=== PATIENT | female | born 2000 | race Caucasian/White ===

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

== ENCOUNTER 2019-02-01 14:46 | Emergency (ER) | payer MEDICAID ==
--- NOTE | 2019-02-01 15:19 | EDM.PDOC ---
ED HPI GENERAL MEDICAL PROBLEM - General Chief Complaint: Neurological Problem Stated Complaint: SEIZURES Time Seen by Provider: 02/01/19 15:00 Source of Information: Reports: Patient, Family History Limitations: Reports: No Limitations - History of Present Illness INITIAL COMMENTS - FREE TEXT/NARRATIVE: 18-year-old female who has a chronic history of epilepsy, her seizures were overall controlled for 5 years but over the past 6 months she has been having increased seizures. Over the past 2-3 days she's had some dizziness and lightheadedness, blurry vision so was on her way into the clinic to be evaluated today when she had some seizure-like activity in the waiting area. She was immediately wheeled over to the emergency room. She arrived alert and in no distress. Vitals are stable. Apparently she has possibly missed one dose of Keppra in the past week. They had talked to her seizure physician prior to going to the clinic, apparently some labs were requested and faxed to the clinic , we will try to find those orders. Onset: Unknown/Unsure Associated Symptoms: Reports: Confusion, Other (Symptoms recently are nonspecific such as dizziness, unsteady and lightheaded with some visual blurring). Denies: Chest Pain, Cough, Diaphoresis, Fever/Chills, Malaise, Nausea/Vomiting, Shortness of Breath, Weakness - Related Data Allergies Allergy/AdvReac Type Severity Reaction Status Date / Time amoxicillin Allergy Rash Verified 09/16/18 20:37 lorazepam [From Ativan] Allergy Hyperactivi Verified 09/16/18 20:37 ty Home Meds: Home Meds Felbamate [Felbatol] 600 mg PO BID 04/13/14 [History] Folic Acid 2 mg PO DAILY 04/13/14 [History] Loratadine [Claritin] 10 mg PO DAILY 04/13/14 [History] lamoTRIgine [Lamictal Xr] 50 mg PO BID 04/13/14 [History] Amitriptyline [Elavil] 25 mg PO BEDTIME 09/16/18 [History] Montelukast [Singulair] 10 mg PO BEDTIME 09/16/18 [History] levETIRAcetam [Levetiracetam] 1,000 mg PO BID 09/16/18 [History] Past Medical History Musculoskeletal History: Reports: Other (See Below) Other Musculoskeletal History: sprain Neurological History: Reports: Seizure - Past Surgical History Musculoskeletal Surgical History: Reports: Other (See Below) Other Musculoskeletal Surgeries/Procedures:: left foot Social & Family History - Tobacco Use Smoking Status *Q: Never Smoker - Caffeine Use Caffeine Use: Reports: Soda - Recreational Drug Use Recreational Drug Use: No ED ROS GENERAL - Review of Systems Review Of Systems: See Below Constitutional: Denies: Fever HEENT: Reports: Vision Change (Intermittent blurred vision) Respiratory: Denies: Shortness of Breath Cardiovascular: Denies: Chest Pain GI/Abdominal: Denies: Abdominal Pain, Nausea, Vomiting Skin: Reports: No Symptoms. Denies: Bruising Neurological: Reports: Seizure (Increased seizure activity). Denies: Headache - Physical Exam Exam: See Below Exam Limited By: No Limitations General Appearance: Alert, No Apparent Distress Eye Exam: Bilateral Eye: Normal Inspection (EOMs are intact, pupils reactive) Throat/Mouth: Normal Inspection, Other (No trauma to the tongue) Head Exam: Atraumatic Neck: Supple, Non-Tender Respiratory/Chest: Lungs Clear Cardiovascular: Regular Rate, Rhythm Neuro Exam (Abbreviated): Alert, Oriented, No Motor/Sensory Deficits Psychiatric: Normal Affect, Normal Mood Skin Exam: Warm, Dry Course - Vital Signs Last Recorded V/S: Last Vital Signs Temp 97.6 F 02/01/19 14:52 Pulse 97 02/01/19 16:18 Resp 16 02/01/19 16:14 BP 92/49 L 02/01/19 16:18 Pulse Ox 96 02/01/19 16:14 - Orders/Labs/Meds Orders: Active Orders 24 hr Category Date Time Status FELBAMATE (FELBATOL(R)), SERUM Routine Lab 02/01/19 15:42 Received LAMOTRIGINE (LAMICTAL), SERUM Stat Lab 02/01/19 15:30 Received LEVETIRACETAM (KEPPRA), S Stat Lab 02/01/19 15:30 Received Saline Lock Insert [OM.PC] Routine Oth 02/01/19 15:13 Ordered Labs: Laboratory Tests 02/01/19 02/01/19 02/01/19 Range/Units 15:30 15:30 15:54 WBC 4.7 (4.5-11.0) K/uL RBC 4.74 (3.30-5.50) M/uL Hgb 14.6 (12.0-15.0) g/dL Hct 42.6 (36.0-48.0) % MCV 90 (80-98) fL MCH 31 (27-31) pg MCHC 34 (32-36) % Plt Count 248 (150-400) K/uL Neut % (Auto) 50 (36-66) % Lymph % (Auto) 40 (24-44) % [place] % (Auto) 9 H (2-6) % Eos % (Auto) 1 L (2-4) % Baso % (Auto) 1 (0-1) % Sodium 141 (140-148) mmol/L Potassium 3.8 (3.6-5.2) mmol/L Chloride 102 (100-108) mmol/L Carbon Dioxide 29 (21-32) mmol/L Anion Gap 10.1 (5.0-14.0) mmol/L BUN 11 (7-18) mg/dL Creatinine 0.9 (0.6-1.0) mg/dL Est Cr Clr Drug Dosing 101.42 mL/min Estimated GFR (MDRD) > 60 (>60) Glucose 89 (74-106) mg/dL Calcium 8.8 (8.5-10.1) mg/dL Total Bilirubin 0.3 (0.2-1.0) mg/dL AST 19 (15-37) U/L ALT 20 (12-78) U/L Alkaline Phosphatase 81 (46-116) U/L Total Protein 7.6 (6.4-8.2) g/dL Albumin 4.3 (3.4-5.0) g/dL Globulin 3.3 (2.3-3.5) g/dL Albumin/Globulin Ratio 1.3 (1.2-2.2) Urine Opiates Screen Negative (NEGATIVE) Ur Oxycodone Screen Negative (NEGATIVE) Urine Methadone Screen Negative (NEGATIVE) Ur Propoxyphene Screen Negative (NEGATIVE) Ur Barbiturates Screen Negative (NEGATIVE) Ur Tricyclics Screen Presumptive positive H (NEGATIVE) Ur Phencyclidine Scrn Negative (NEGATIVE) Ur Amphetamine Screen Negative (NEGATIVE) U Methamphetamines Scrn Negative (NEGATIVE) Urine MDMA Screen Negative (NEGATIVE) U Benzodiazepines Scrn Negative (NEGATIVE) U Cocaine Metab Screen Negative (NEGATIVE) U Marijuana (THC) Screen Negative (NEGATIVE) Meds: Medications Discontinued Medications Generic Name Dose Route Start Last Admin Trade Name Saida PRN Reason Stop Dose Admin Levetiracetam 500 mg/ Sodium 105 mls @ 400 mls/hr 02/01/19 15:44 02/01/19 15: 53 Chloride IV 02/01/19 15:58 400 mls/hr ONETIME ONE Administration Sodium Chloride 10 ml 02/01/19 15:13 02/01/19 16:13 Saline Flush FLUSH 10 ml ASDIRECTED PRN Administration Keep Vein Open - Re-Assessments/Exams Free Text/Narrative Re-Assessment/Exam: 02/01/19 15:19 A saline lock was applied 02/01/19 16:31 After consultation with her neurology specialist, CBC, CMP, urine tox screen, and drug levels were obtained. CBC and CMP as well as urine tox screen were all negative. She was given 500 mg of IV Keppra and discharge. No medication changes until the drug levels are available. Patient had no seizure activity and was normal throughout her stay in the emergency room. Departure - Departure Time of Disposition: 16:48 Disposition: Home, Self-Care 01 Clinical Impression: Seizures - Discharge Information Instructions: Epilepsy, [id number] Referrals: PCP,None [Primary Care Provider] - Forms: ED Department Discharge Care Plan Goals: Continue current medications and increase activity as tolerated. Results of your lab tests will be sent when available. Sepsis Event Note - Evaluation Sepsis Screening Result: No Definite Risk - Focused Exam Vital Signs: Vital Signs Temp Pulse Resp BP Pulse Ox 02/01/19 16:18 97 92/49 L 02/01/19 16:14 74 16 87/44 L 96 02/01/19 14:52 97.6 F 86 16 119/82 96 Date Exam was Performed: 02/01/19 Time Exam was Performed: 18:29 - My Orders Last 24 Hours: My Active Orders 02/01/19 15:13 Saline Lock Insert [OM.PC] Routine 02/01/19 15:30 LAMOTRIGINE (LAMICTAL), SERUM Stat LEVETIRACETAM (KEPPRA), S Stat 02/01/19 15:42 FELBAMATE (FELBATOL(R)), SERUM Routine - Assessment/Plan Last 24 Hours: My Active Orders 02/01/19 15:13 Saline Lock Insert [OM.PC] Routine 02/01/19 15:30 LAMOTRIGINE (LAMICTAL), SERUM Stat LEVETIRACETAM (KEPPRA), S Stat 02/01/19 15:42 FELBAMATE (FELBATOL(R)), SERUM Routine
[2019-02-01] MEDS: Sodium Chloride 0.9% 10 ML Syringe FLUSH PRN ×2 (15:28→16:13)
[2019-02-01] MEDS ORDERED: levETIRAcetam 500 MG in Sodium Chloride 0.9% 100 ML IV ONE (15:44)
[2019-02-01 16:19] VITALS: BP 92/49; PULSE 97
== END 2019-02-01 16:48 | disposition home or self-care (01) ==
LOC: JP.ED 14:46
DX: R56.9 Unspecified convulsions (principal); Z88.1 Allergy status to other antibiotic agents; Z88.8 Allergy status to other drugs, medicaments and biological substances; Z79.899 Other long term (current) drug therapy
CPT/HCPCS: 36415; 80053; 80175; 80177; 80299; 80305; 85025; 96365; 99284; J1953; J7050

== ENCOUNTER 2020-04-09 00:49 | Emergency (ER) | payer MEDICAID ==
--- NOTE | 2020-04-09 01:28 | EDM.PDOCBH ---
ED HPI GENERAL MEDICAL PROBLEM - General Chief Complaint: Behavioral/Psych Stated Complaint: EVAL Time Seen by Provider: 04/09/20 01:25 Source of Information: Reports: Patient History Limitations: Reports: Other (pt does seem immature and feels like she needs her family by her side. ) - History of Present Illness INITIAL COMMENTS - FREE TEXT/NARRATIVE: pt satedtonight that she was depressed and that she was going [place] the [place] and freeze to . She has been taking her meds. Onset: Gradual Duration: Day(s):, Waxing/Waning Associated Symptoms: Reports: Seizure, Other ( increased depression) - Related Data Allergies Allergy/AdvReac Type Severity Reaction Status Date / Time amoxicillin Allergy Rash Verified 04/09/20 10:44 lorazepam [From Ativan] Allergy Hyperactivi Verified 04/09/20 10:44 ty Home Meds: Home Meds Felbamate [Felbatol] 600 mg PO BID 04/13/14 [History] Folic Acid 2 mg PO DAILY 04/13/14 [History] lamoTRIgine [Lamictal Xr] 100 mg PO BID 04/13/14 [History] Amitriptyline [Elavil] 25 mg PO BEDTIME 09/16/18 [History] Montelukast [Singulair] 10 mg PO BEDTIME 09/16/18 [History] levETIRAcetam [Levetiracetam] 1,500 mg PO BID 09/16/18 [History] Past Medical History Musculoskeletal History: Reports: Other (See Below) Other Musculoskeletal History: sprain Neurological History: Reports: Seizure - Past Surgical History Musculoskeletal Surgical History: Reports: Other (See Below) Other Musculoskeletal Surgeries/Procedures:: left foot Social & Family History - Caffeine Use Caffeine Use: Reports: Soda ED ROS GENERAL - Review of Systems Review Of Systems: See Below Constitutional: Reports: No Symptoms HEENT: Reports: No Symptoms Respiratory: Reports: No Symptoms Cardiovascular: Reports: No Symptoms Endocrine: Reports: No Symptoms GI/Abdominal: Reports: No Symptoms : Reports: No Symptoms Musculoskeletal: Reports: No Symptoms Skin: Reports: No Symptoms Neurological: Reports: No Symptoms, Other (pt has a history of seizures. ) Psychiatric: Reports: Depression, Suicidal Ideation ED EXAM, BEHAVIORAL HEALTH - Physical Exam Exam: See Below Text/Narrative:: pt has a history of mild retardation, high funtioning. She has been depressed and has threatened suicide. She has talked to the crisis team multiple times and the domínguez reccommened inpatient treatment. Exam Limited By: No Limitations General Appearance: Alert, Anxious, Other (pt is not willing to discuss some of her issues unless her mother is present. ) Ears: Normal TMs Nose: Normal Inspection Throat/Mouth: Normal Inspection Head: Atraumatic Neck: Normal Inspection Respiratory/Chest: No Respiratory Distress Cardiovascular: Regular Rate, Rhythm GI/Abdominal: Soft, Non-Tender (Female) Exam: Deferred Rectal (Female) Exam: Deferred Back Exam: Normal Inspection Extremities: Normal Inspection Neurological: Alert Psychiatric: Alert, Normal Cognition, Other (pt is continuously rocking while she talks. ) COURSE, BEHAVIORAL HEALTH COMP - Course Vital Signs: Last Vital Signs Temp 36.3 C 04/09/20 01:24 Pulse 123 H 04/09/20 01:24 Resp 16 04/09/20 01:24 BP 145/86 H 04/09/20 01:24 Pulse Ox 95 04/09/20 01:24 Orders, Labs, Meds: Active Orders 24 hr Category Date Time Status LEVETIRACETAM (KEPPRA), S Stat Lab 04/09/20 01:11 Received Laboratory Tests 04/09/20 04/09/20 04/09/20 Range/Units 01:11 01:11 01:11 WBC 6.3 (4.5-11.0) K/uL RBC 4.53 (3.30-5.50) M/uL Hgb 13.9 (12.0-15.0) g/dL Hct 41.0 (36.0-48.0) % MCV 91 (80-98) fL MCH 31 (27-31) pg MCHC 34 (32-36) % Plt Count 246 (150-400) K/uL Neut % (Auto) 55 (36-66) % Lymph % (Auto) 35 (24-44) % Hanson % (Auto) 8 H (2-6) % Eos % (Auto) 1 L (2-4) % Baso % (Auto) 1 (0-1) % Sodium 136 L (140-148) mmol/L Potassium 3.5 L (3.6-5.2) mmol/L Chloride 103 (100-108) mmol/L Carbon Dioxide 26 (21-32) mmol/L Anion Gap 10.5 (5.0-14.0) mmol/L BUN 14 (7-18) mg/dL Creatinine 1.0 (0.6-1.0) mg/dL Est Cr Clr Drug Dosing 84.43 mL/min Estimated GFR (MDRD) > 60 (>60) Glucose 97 (74-106) mg/dL Calcium 9.3 (8.5-10.1) mg/dL Total Bilirubin 0.2 (0.2-1.0) mg/dL AST 33 (15-37) U/L ALT 53 D (12-78) U/L Alkaline Phosphatase 72 (46-116) U/L Total Protein 7.2 (6.4-8.2) g/dL Albumin 4.1 (3.4-5.0) g/dL Globulin 3.1 (2.3-3.5) g/dL Albumin/Globulin Ratio 1.3 (1.2-2.2) TSH, Ultra Sensitive (0.358-3.740) uIU/mL Urine Color (YELLOW) Urine Appearance (CLEAR) Urine pH (5.0-8.0) Ur Specific Elwood (1.008-1.030) Urine Protein (NEGATIVE) mg/dL Urine Glucose (UA) (NEGATIVE) mg/dL Urine Ketones (NEGATIVE) mg/dL Urine Occult Blood (NEGATIVE) Urine Nitrite (NEGATIVE) Urine Bilirubin (NEGATIVE) Urine Urobilinogen (0.2-1.0) EU/dL Ur Leukocyte Esterase (NEGATIVE) Urine RBC (0-5) Urine WBC (0-5) Ur Epithelial Cells Amorphous Sediment Urine Bacteria Urine Mucus Urine HCG, Qual Urine Opiates Screen (NEGATIVE) Ur Oxycodone Screen (NEGATIVE) Urine Methadone Screen (NEGATIVE) Ur Propoxyphene Screen (NEGATIVE) Ur Barbiturates Screen (NEGATIVE) Ur Tricyclics Screen (NEGATIVE) Ur Phencyclidine Scrn (NEGATIVE) Ur Amphetamine Screen (NEGATIVE) U Methamphetamines Scrn (NEGATIVE) Urine MDMA Screen (NEGATIVE) U Benzodiazepines Scrn (NEGATIVE) U Cocaine Metab Screen (NEGATIVE) U Marijuana (THC) Screen (NEGATIVE) Ethyl Alcohol < 3 mg/dL 04/09/20 04/09/20 04/09/20 Range/Units 02:06 04:15 04:30 WBC (4.5-11.0) K/uL RBC (3.30-5.50) M/uL Hgb (12.0-15.0) g/dL Hct (36.0-48.0) % MCV (80-98) fL MCH (27-31) pg MCHC (32-36) % Plt Count (150-400) K/uL Neut % (Auto) (36-66) % Lymph % (Auto) (24-44) % Hanson % (Auto) (2-6) % Eos % (Auto) (2-4) % Baso % (Auto) (0-1) % Sodium (140-148) mmol/L Potassium (3.6-5.2) mmol/L Chloride (100-108) mmol/L Carbon Dioxide (21-32) mmol/L Anion Gap (5.0-14.0) mmol/L BUN (7-18) mg/dL Creatinine (0.6-1.0) mg/dL Est Cr Clr Drug Dosing mL/min Estimated GFR (MDRD) (>60) Glucose (74-106) mg/dL Calcium (8.5-10.1) mg/dL Total Bilirubin (0.2-1.0) mg/dL AST (15-37) U/L ALT (12-78) U/L Alkaline Phosphatase (46-116) U/L Total Protein (6.4-8.2) g/dL Albumin (3.4-5.0) g/dL Globulin (2.3-3.5) g/dL Albumin/Globulin Ratio (1.2-2.2) TSH, Ultra Sensitive 1.577 (0.358-3.740) uIU/mL Urine Color Yellow (YELLOW) Urine Appearance Clear (CLEAR) Urine pH 7.0 (5.0-8.0) Ur Specific Elwood 1.020 (1.008-1.030) Urine Protein Negative (NEGATIVE) mg/dL Urine Glucose (UA) Negative (NEGATIVE) mg/dL Urine Ketones Negative (NEGATIVE) mg/dL Urine Occult Blood Negative (NEGATIVE) Urine Nitrite Negative (NEGATIVE) Urine Bilirubin Negative (NEGATIVE) Urine Urobilinogen 0.2 (0.2-1.0) EU/dL Ur Leukocyte Esterase Negative (NEGATIVE) Urine RBC 0-5 (0-5) Urine WBC 0-5 (0-5) Ur Epithelial Cells Rare Amorphous Sediment Not seen Urine Bacteria Few Urine Mucus Not seen Urine HCG, Qual Urine Opiates Screen Negative (NEGATIVE) Ur Oxycodone Screen Negative (NEGATIVE) Urine Methadone Screen Negative (NEGATIVE) Ur Propoxyphene Screen Negative (NEGATIVE) Ur Barbiturates Screen Negative (NEGATIVE) Ur Tricyclics Screen Presumptive positive H (NEGATIVE) Ur Phencyclidine Scrn Negative (NEGATIVE) Ur Amphetamine Screen Negative (NEGATIVE) U Methamphetamines Scrn Negative (NEGATIVE) Urine MDMA Screen Negative (NEGATIVE) U Benzodiazepines Scrn Negative (NEGATIVE) U Cocaine Metab Screen Negative (NEGATIVE) U Marijuana (THC) Screen Presumptive positive H (NEGATIVE) Ethyl Alcohol mg/dL 04/09/20 Range/Units 04:30 WBC (4.5-11.0) K/uL RBC (3.30-5.50) M/uL Hgb (12.0-15.0) g/dL Hct (36.0-48.0) % MCV (80-98) fL MCH (27-31) pg MCHC (32-36) % Plt Count (150-400) K/uL Neut % (Auto) (36-66) % Lymph % (Auto) (24-44) % Hanson % (Auto) (2-6) % Eos % (Auto) (2-4) % Baso % (Auto) (0-1) % Sodium (140-148) mmol/L Potassium (3.6-5.2) mmol/L Chloride (100-108) mmol/L Carbon Dioxide (21-32) mmol/L Anion Gap (5.0-14.0) mmol/L BUN (7-18) mg/dL Creatinine (0.6-1.0) mg/dL Est Cr Clr Drug Dosing mL/min Estimated GFR (MDRD) (>60) Glucose (74-106) mg/dL Calcium (8.5-10.1) mg/dL Total Bilirubin (0.2-1.0) mg/dL AST (15-37) U/L ALT (12-78) U/L Alkaline Phosphatase (46-116) U/L Total Protein (6.4-8.2) g/dL Albumin (3.4-5.0) g/dL Globulin (2.3-3.5) g/dL Albumin/Globulin Ratio (1.2-2.2) TSH, Ultra Sensitive (0.358-3.740) uIU/mL Urine Color (YELLOW) Urine Appearance (CLEAR) Urine pH (5.0-8.0) Ur Specific Elwood (1.008-1.030) Urine Protein (NEGATIVE) mg/dL Urine Glucose (UA) (NEGATIVE) mg/dL Urine Ketones (NEGATIVE) mg/dL Urine Occult Blood (NEGATIVE) Urine Nitrite (NEGATIVE) Urine Bilirubin (NEGATIVE) Urine Urobilinogen (0.2-1.0) EU/dL Ur Leukocyte Esterase (NEGATIVE) Urine RBC (0-5) Urine WBC (0-5) Ur Epithelial Cells Amorphous Sediment Urine Bacteria Urine Mucus Urine HCG, Qual Negative Urine Opiates Screen (NEGATIVE) Ur Oxycodone Screen (NEGATIVE) Urine Methadone Screen (NEGATIVE) Ur Propoxyphene Screen (NEGATIVE) Ur Barbiturates Screen (NEGATIVE) Ur Tricyclics Screen (NEGATIVE) Ur Phencyclidine Scrn (NEGATIVE) Ur Amphetamine Screen (NEGATIVE) U Methamphetamines Scrn (NEGATIVE) Urine MDMA Screen (NEGATIVE) U Benzodiazepines Scrn (NEGATIVE) U Cocaine Metab Screen (NEGATIVE) U Marijuana (THC) Screen (NEGATIVE) Ethyl Alcohol mg/dL Medications Discontinued Medications Generic Name Dose Route Start Last Admin Trade Name Freq PRN Reason Stop Dose Admin Clonazepam 0.5 mg 04/09/20 03:53 04/09/20 03:57 Klonopin PO 04/09/20 03:54 0.5 mg ONETIME ONE Administration Clonazepam 0.5 mg 04/09/20 07:13 04/09/20 07:26 Klonopin PO 04/09/20 07:14 0.5 mg ONETIME ONE Administration Medical Clearance: 04/09/20 01:57 lab work looks good. A urine has not been obtained. Olivia is reccomending inpatient treatment. The crisis tem is very concerned about her suicidal ideation. They wanted a 72 hour hold immediately. Mother is upset because they did not come and talk to her. Crisis feels she is at very high risk for suicide. 04/09/20 05:26 Departure - Departure Time of Disposition: 07:10 Disposition: DC/Tfer to Psych Hosp/Unit 65 Condition: Fair Clinical Impression: Depression, Suicidal ideations, Mild mental handicap - Discharge Information Referrals: Nat Bolanos MD [Primary Care Provider] - Forms: ED Department Discharge Care Plan Goals: Haim Elias accepted the pt. - My Orders Last 24 Hours: My Active Orders 04/09/20 01:11 LEVETIRACETAM (KEPPRA), S Stat - Assessment/Plan Last 24 Hours: My Active Orders 04/09/20 01:11 LEVETIRACETAM (KEPPRA), S Stat
[2020-04-09 01:29] VITALS: BP 145/86; PULSE 123
[2020-04-09] MEDS ORDERED: ClonazePAM 0.5 MG Tab PO ONE ×2 (03:53→07:13)
== END 2020-04-09 08:54 ==
LOC: JP.ED 00:49
DX: F32.9 Major depressive disorder, single episode, unspecified (principal); R56.9 Unspecified convulsions; Z88.0 Allergy status to penicillin; Z88.8 Allergy status to other drugs, medicaments and biological substances; Z79.899 Other long term (current) drug therapy
CPT/HCPCS: 80053; 80177; 80305; 80307; 81001; 81025; 84443; 85025; 99285; A9270

== ENCOUNTER 2020-04-09 09:25 | Emergency (ER) | payer MEDICAID ==
[2020-04-09] MEDS ORDERED: diphenhydrAMINE 50 MG/ML SDV IM ONE (09:26)
[2020-04-09] MEDS ORDERED: Haloperidol Lactate 5 MG/ML SDV IM ONE ×2 (09:28→10:05)
--- NOTE | 2020-04-09 09:38 | EDM.PDOCBH ---
ED HPI GENERAL MEDICAL PROBLEM - General Chief Complaint: Behavioral/Psych Stated Complaint: EVAL Time Seen by Provider: 04/09/20 09:33 Source of Information: Reports: Patient, Old Records, Police, RN History Limitations: Reports: No Limitations - History of Present Illness INITIAL COMMENTS - FREE TEXT/NARRATIVE: 20 yo female here by police after she tried to kick out their car windows while transporting to [facility] for mental illness. Was returned to the ER for sedation and alternate transport by EMS to [facility]. Onset: Today Onset Date: 04/09/20 Duration: Other (unclear) Location: Reports: Generalized Quality: Reports: Other (pain not reported) Severity: Moderate Improves with: Reports: Medication Worsens with: Reports: Other (? time) Context: Reports: Other (See HPI) Associated Symptoms: Reports: No Other Symptoms Treatments OFFICE DIRECTOR: Reports: Other (see below) (none) - Related Data Allergies Allergy/AdvReac Type Severity Reaction Status Date / Time amoxicillin Allergy Rash Verified 04/09/20 10:44 lorazepam [From Ativan] Allergy Hyperactivi Verified 04/09/20 10:44 ty Home Meds: Home Meds Felbamate [Felbatol] 600 mg PO BID 04/13/14 [History] Folic Acid 2 mg PO DAILY 04/13/14 [History] lamoTRIgine [Lamictal Xr] 100 mg PO BID 04/13/14 [History] Amitriptyline [Elavil] 25 mg PO BEDTIME 09/16/18 [History] Montelukast [Singulair] 10 mg PO BEDTIME 09/16/18 [History] levETIRAcetam [Levetiracetam] 1,500 mg PO BID 09/16/18 [History] Past Medical History Musculoskeletal History: Reports: Other (See Below) Other Musculoskeletal History: sprain Neurological History: Reports: Seizure Psychiatric History: Reports: Anxiety, Depression, Developmental Delay, PTSD, Suicidal Ideation, Other (See Below) Other Psychiatric History: mild mental retardation - Past Surgical History Musculoskeletal Surgical History: Reports: Other (See Below) Other Musculoskeletal Surgeries/Procedures:: left foot Social & Family History - Caffeine Use Caffeine Use: Reports: Coffee, Energy Drinks, Soda, Tea ED ROS GENERAL - Review of Systems Review Of Systems: See Below Constitutional: Reports: No Symptoms HEENT: Reports: No Symptoms Respiratory: Reports: No Symptoms Cardiovascular: Reports: No Symptoms GI/Abdominal: Reports: No Symptoms : Reports: No Symptoms Musculoskeletal: Reports: No Symptoms Skin: Reports: No Symptoms Neurological: Reports: No Symptoms Psychiatric: Reports: Agitation, Suicidal Ideation ED EXAM, BEHAVIORAL HEALTH - Physical Exam Exam: See Below Exam Limited By: No Limitations General Appearance: Alert, WD/WN, Moderate Distress, Other (agitated) Nose: Normal Inspection Throat/Mouth: Normal Lips, Normal Voice, No Airway Compromise Head: Atraumatic, Normocephalic Neck: Normal Inspection Respiratory/Chest: No Respiratory Distress, Normal Breath Sounds, No Accessory Muscle Use Extremities: Normal Inspection Neurological: Alert, Normal Mood/Affect, CN II-XII Intact, No Motor/Sensory Deficits, Oriented x 3 Psychiatric: Alert, Oriented, Agitated Skin Exam: Warm, Dry, Intact, Normal color, No rash COURSE, BEHAVIORAL HEALTH COMP - Course Orders, Labs, Meds: Active Orders 24 hr Category Date Time Status Initiate/Renew Non-Violent Restraints (All Ages) Q24H Care 04/09/20 10:00 Ordered Initiate/Renew Non-Violent Restraints (All Ages) Q24H Care 04/10/20 10:00 Ordered Nrsg Assess Restraint Init/Mon [RC] Q1H Care 04/09/20 10:04 Active Medications Discontinued Medications Generic Name Dose Route Start Last Admin Trade Name Freq PRN Reason Stop Dose Admin Diphenhydramine HCl 50 mg 04/09/20 09:26 04/09/20 09:35 Benadryl IM 04/09/20 09:27 50 mg ONETIME ONE Administration Haloperidol Lactate 10 mg 04/09/20 09:28 04/09/20 09:50 Haldol IM 04/09/20 09:29 10 mg ONETIME ONE Administration Haloperidol Lactate 5 mg 04/09/20 10:05 04/09/20 10:17 Haldol IM 04/09/20 10:06 5 mg ONETIME ONE Administration Re-Assessment/Re-Exam: Not sufficiently calm after initial Haldol 10 mg dose, will add 5 mg more IM. Departure - Departure Time of Disposition: 13:01 Disposition: DC/Tfer to Psych Hosp/Unit 65 Condition: Fair Clinical Impression: Suicidal ideation - Discharge Information *PRESCRIPTION DRUG MONITORING PROGRAM REVIEWED*: Not Applicable *COPY OF PRESCRIPTION DRUG MONITORING REPORT IN PATIENT TAMAR: Not Applicable Referrals: Missael Patino MD [Primary Care Provider] - Forms: ED Department Discharge - My Orders Last 24 Hours: My Active Orders 04/09/20 10:00 Initiate/Renew Non-Violent Restraints (All Ages) Q24H 04/09/20 10:04 Nrsg Assess Restraint Init/Mon [RC] Q1H 04/10/20 10:00 Initiate/Renew Non-Violent Restraints (All Ages) Q24H - Assessment/Plan Last 24 Hours: My Active Orders 04/09/20 10:00 Initiate/Renew Non-Violent Restraints (All Ages) Q24H 04/09/20 10:04 Nrsg Assess Restraint Init/Mon [RC] Q1H 04/10/20 10:00 Initiate/Renew Non-Violent Restraints (All Ages) Q24H
== END 2020-04-09 13:00 ==
LOC: JP.ED 09:25
DX: R45.851 Suicidal ideations (principal); R56.9 Unspecified convulsions; Z88.0 Allergy status to penicillin; Z88.8 Allergy status to other drugs, medicaments and biological substances; Z79.899 Other long term (current) drug therapy
CPT/HCPCS: 96372; 99285; J1200; J1630

== ENCOUNTER 2024-02-03 16:11 | Emergency (ER) | payer MEDICARE, MEDICAID ==
[2024-02-03 17:32] LABS: BASOPHILS ABSOLUTE AUTO 0.04 K/uL (0.00-0.10); BASOPHILS PERCENT AUTO 0.7 % (0.1-1.3); EOSINOPHILS PERCENT AUTO 1.6 % (0.0-5.4); HEMATOCRIT 41.3 % (34.3-46.0); HEMOGLOBIN 14.9 g/dL (11.2-15.5); IMMATURE GRAN PERCENT AUTO 0.5 % (0.0-0.7); LYMPHOCYTES ABSOLUTE AUTO 2.76 K/uL (0.8-3.3); LYMPHOCYTES PERCENT AUTO 45.5 % (11.4-47.7); MEAN CORPUSCULAR HEMOGLOBIN 31.6 pg (31.6-35.5); MEAN CORPUSCULAR HGB CONC 36.1 g/dL (31.6-35.5); MEAN CORPUSCULAR VOLUME 87.5 fL (81.4-99.0); MONOCYTES ABSOLUTE AUTO 0.39 K/uL (0.20-0.90); MONOCYTES PERCENT AUTO 6.4 % (3.3-12.6); NEUTROPHILS ABSOLUTE AUTO 2.75 K/uL (1.0-7.6); NEUTROPHILS PERCENT AUTO 45.3 % (40.0-78.1); PLATELET COUNT,PLT 170 K/uL (130-375); RED BLOOD CELL COUNT 4.72 M/uL (3.77-5.24); WHITE BLOOD CELL COUNT,WBC 6.1 K/uL (3.2-11.0)
[2024-02-03] MEDS: Ibuprofen 600 MG Tab PO ONE (17:34)
[2024-02-03] MEDS ORDERED: Glucagon,Human Recombinant 1 MG Vial IM PRN (17:42)
[2024-02-03] MEDS ORDERED: 50% Dextrose in Water 50 ML Syringe IVPUSH PRN (17:42)
[2024-02-03 17:53] LABS: IMMATURE GRAN ABSOLUTE AUTO 0.03 K/uL (0.00-0.23)
[2024-02-03 17:58] LABS: BLOOD UREA NITROGEN,BUN 8 mg/dL (7-18); CARBON DIOXIDE,CO2 29 mmol/L (21-32); CHLORIDE,CL 100 mmol/L (100-108); EST CRCL DRUG DOSING (CG) 87.51 mL/min; ESTIMATED GFR 81 mL/min (>60); GLUCOSE RANDOM 107 mg/dL (74-106); POTASSIUM,K 3.8 mmol/L (3.6-5.2); SODIUM,NA 138 mmol/L (140-148)
[2024-02-03] MEDS: metFORMIN 500 MG Tab PO STA (17:58)
[2024-02-03] MEDS: Insulin Glargine,Human Rec. Analog 100 Units/ML 3 ML Pen SUBCUT SCH (17:58)
[2024-02-03 18:01] LABS: ANION GAP 12.8 mmol/L (5.0-14.0); TROPONIN I HIGH SENSITIVITY < 4.0 pg/mL (<=60.3)
[2024-02-03] MEDS: Iopamidol 755 Mg/ML 100 ML Bottle IV SCH (18:38)
[2024-02-03] MEDS: Sodium Chloride 0.9% 100 ML IV SCH (18:38)
[2024-02-03 19:20] VITALS: BP 115/70; PULSE 88
[2024-02-04] MEDS ORDERED: metFORMIN 500 MG Tab PO ONE (17:43)
== END 2024-02-03 20:07 | disposition home or self-care (01) ==
LOC: JP.ED 16:11
DX: R07.89 Other chest pain (principal); Z79.899 Other long term (current) drug therapy; Z88.0 Allergy status to penicillin; Z88.8 Allergy status to other drugs, medicaments and biological substances
CPT/HCPCS: 36415; 71046; 71275; 80048; 81025; 84484; 85025; 85379; 87428; 93005; 99285; A9270; J1815; J3490; Q9967